=== PATIENT | female | born 1995 | race Caucasian/White ===

== ENCOUNTER 2017-05-05 19:33 | Emergency (ER) | payer SELFPAY ==
[~2017-05-05] VITALS: Ht 160 cm; Wt 53.1 kg
[2017-05-05] MEDS ORDERED: FLAGYL500 MG PO (19:40)
== END 2017-05-05 20:49 | disposition home or self-care (01) ==
LOC: ED 19:33
DX: S05.02XA Injury of conjunctiva and corneal abrasion without foreign body, left eye, initial encounter (principal); F17.200 Nicotine dependence, unspecified, uncomplicated; W00.0XXA Fall on same level due to ice and snow, initial encounter; Y93.89 Activity, other specified; Y92.9 Unspecified place or not applicable; Y99.9 Unspecified external cause status